=== PATIENT | male | born 1985 | race Caucasian/White ===

== ENCOUNTER → 2016-07-10 | Outpatient (CLI) | payer BC, OTHER ==
--- NOTE | 2016-07-10 15:19 | DI ---
THYROID ULTRASOUND, 07/10/2016 1:45 PM Clinical History: Palpable lump in the neck. This is actually located just superior to the sternal no tch in the midline. Previous Exam: 04/06/2016. Scans are performed through both lobes of the thyroid gland in multiple projections with the high res olution linear array probe. Color Doppler ultrasound is also performed. Both lobes of the thyroid gland are of normal size. The right and left lobes measure 18 x 21 x 53 mm, and 11 x 14 x 45 mm, in the AP, transverse, and longitudinal dimensions, respectively. These measure ments are close to the measurements obtained on the previous exam and are within interoperator variab ility. There is no solid or cystic mass noted in either lobe or in the isthmus. Scans were performed by myself as well as the tech over the suprasternal region. By palpation, there is an area of increased firmness compared to the surrounding area and this is felt to be in the subcu taneous fat and measures about 5 mm. Scans directly over this region show no solid or cystic lesion. Directly over the area is an area of fatty tissue that has slightly more connective tissue present an d this may represent the palpable finding. No discrete capsule is seen. Color Doppler ultrasound show s no abnormal flow in this region. Readin. Normal thyroid ultrasound. 2. No discrete lesion is seen although there is slightly more echogenicity in the area where the pat ient indicates the lump is located. This increased echogenicity is primarily secondary to fibrous con nective tissue that is coursing through the fat. No discrete lesion or capsule is seen. 3. The patient was advised to monitor this area on a monthly basis since it is readily accessible by palpation. He was instructed to contact his health care provider promptly if he noted any change suc h as increase in size or pain. If there is a change, then a followup ultrasound can be performed.
== END ==
LOC: US 13:41
PROVIDERS: ATTEND Physician Assistant
DX: R22.1 Localized swelling, mass and lump, neck (principal)
CPT/HCPCS: 76536

== ENCOUNTER → 2016-12-28 | Outpatient (CLI) | payer BC, OTHER ==
[2016-12-28 16:37] LABS: CHOL/HDL RATIO 6.17 RATIO (0-4.0)
[2016-12-28 16:38] LABS: BLOOD UREA NITROGEN 18 mg/dL (7-22); BUN/CREATININE RATIO 16.36 (6-20); CALCIUM 9.6 mg/dL (8.7-10.7); EST GLOMERULAR FILTRATION > 60 (>60 ml/min/1.73m(2)); SERUM ALBUMIN 4.4 g/dL (3.5-4.8)
[2016-12-28 16:39] LABS: HEMOGLOBIN A1C 5.35 % (4.2-6.0)
[2016-12-28 16:54] LABS: VITAMIN D 25-HYDROXY 18.3 NG/ML (30-100)
== END ==
LOC: LAB 08:17
PROVIDERS: ATTEND Nurse Practitioner Family
DX: R42 Dizziness and giddiness (principal); E78.5 Hyperlipidemia, unspecified; R53.83 Other fatigue; E16.2 Hypoglycemia, unspecified
CPT/HCPCS: 80053; 80061; 82306; 83036; 83525; 84443